=== PATIENT | female | born 1965 | race Two or more races ===

== ENCOUNTER 2017-02-28 18:54 | Emergency (ER) | payer OTHER ==
[~2017-02-28] VITALS: Ht 157.5 cm; Wt 68.6 kg
[2017-02-28 18:57] VITALS: BP 162/94
[2017-02-28] MEDS ORDERED: IBUPROFEN 200 MG TABLET PO ONE (20:00)
[2017-02-28] MEDS ORDERED: IBUPROFEN 200 MG TABLET ONE (20:14)
== END 2017-02-28 20:44 | disposition home or self-care (01) ==
LOC: ED 20:30
DX: S60.012A Contusion of left thumb without damage to nail, initial encounter (principal); X58.XXXA Exposure to other specified factors, initial encounter; Y93.89 Activity, other specified; Y92.89 Other specified places as the place of occurrence of the external cause; Y99.9 Unspecified external cause status
CPT/HCPCS: 99284